=== PATIENT | female | born 2000 | race Two or more races ===

== ENCOUNTER 2024-10-21 04:32 | Emergency (ER) | payer MEDICAID, SELFPAY ==
[2024-10-21 04:45] VITALS: PULSE 112; RESP 18; O2SAT 98; BMI 1345.2
--- NOTE | 2024-10-21 04:46 | PD.EDSEIZ ---
ED Seizures RME/HPI General Chief Complaint: Seizure Stated Complaint: SEIZURE Time Seen by Provider: 10/21/24 04:37 Arrival date/time: 10/21/24 04:32 RME / HPI RME / HPI Narrative: This section includes all my notes and documentations, including HPI, PE, and ED course. Carter Rowe MD HPI: 24-year-old female here to be evaluated after a seizure at home. Has history of seizures for about a year. Has prescription for Keppra 500 mg BID. She admits to not being compliant. Normally, she takes Keppra every other day. In the past few days, she didn't take any Keppra. Just prior to arrival, her boyfriend witnessed her having a 30 second seizure in bed. With postictal state and urinary incontinence. ROS: Can't obtain from the patient due to postictal state. Physical Exam: General: In postictal state. Eyes: Conjunctivae and lids clear. EOMI. PERRL. ENT: No nasal congestion. Neck: Supple. Heart: RRR. Lungs: No respiratory distress. Good air movement. No rhonchi, wheezing, rales. Abdomen: Soft and nontender. Skin: Warm and dry. Neuro: Cranial Nerves II-XII grossly intact. No peripheral motor deficits. Musculoskeletal: All major joints and bones are not tender with no limited ROM. I reviewed EMS notes. I reviewed all diagnostic test results. My interpretation of the EKG is sinus rhythm with nonspecific ST-T changes. Blood tests unremarkable. At this point, diagnoses include seizure due to noncompliance. Treatment here included Keppra 1000 mg IV. Patient returned to normal mental status and remained stable. Recommended compliance with Keppra. Based on my best medical judgment, made decision no further evaluation or treatment indicated at this time. Patient understands and agrees to the discharge instructions customized and printed, see below. Discharge instructions from Dr. Rowe: 1. You definitely had a seizure today because of not taking Keppra as prescribed. 2. To prevent seizures (and potentially very severe injuries), please find a way to take Keppra as prescribed currently--500 mg pill 2X daily. 3. Call your neurologist office later today and let them know what happened and ask for further instructions. 4. Seek immediate medical care with another seizure or with any concerns. Related Data Allergies Allergy/AdvReac Type Severity Reaction Status Date / Time No Known Allergies Allergy Verified 05/17/20 12:03 Course Quality Measures none Orders Category Date Time Status EKG (ED ONLY) *Do not use* NOW Care 10/21/24 04:48 Completed Saline [Insert IV] NOW Care 10/21/24 04:47 Completed EKG (ED Only) Stat Exams 10/21/24 04:48 Ordered CBC Stat Lab 10/21/24 04:55 Completed CMP [Comprehensive Metabolic Panel] Stat Lab 10/21/24 04:55 Completed Magnesium Stat Lab 10/21/24 04:55 Completed Troponin I Stat Lab 10/21/24 04:55 Completed Acetaminophen Tab [Tylenol Tab] Med 10/21/24 05:09 Discontinued 650 mg PO X1 ONE Lacosamide Ivp [Vimpat IVP] 200 mg Med 10/21/24 04:37 Discontinued Sodium Chloride 0.9% [Ns] 100 ml IV X1 levETIRAcetam INJ [Keppra Inj] Med 10/21/24 04:47 Discontinued 1,000 mg IVP X1 ONE Vital Signs Vital signs: Vital Signs Temperature 98.4 F 10/21/24 05:17 Pulse Rate 73 10/21/24 05:17 Respiratory Rate 18 10/21/24 05:17 Blood Pressure 144/79 H 10/21/24 05:17 Pulse Oximetry (%) 95 10/21/24 05:17 Oxygen Delivery Method Room Air 10/21/24 05:17 Seizure Patient data External records reviewed:: [facility] previous records and EMS form Clinical information provided by:: patient, EMS and family Social determinants that could affect healthcare access:: none Patient has the following chronic illnesses:: Seizure disorder How is presenting disease/condition affected by chronic disease/condition?: exacerbated by Evaluation data The following diagnostics were reviewed and interpreted by me:: lab results and EKG tracing(s) (My interpretation of the EKG: NSR (84 bpm) with no ST-T changes. Carter Rowe MD) Lab and/or radiology exams considered but not ordered:: None Interpretation Summary: Seizure due to noncompliance Medications / Prescriptions Medications or Prescriptions considered but not ordered:: None Medication administrations:: Medication Administration History Discontinued Medications Acetaminophen (Acetaminophen 325 Mg Tablet) 650 mg PO X1 ONE Stop: 10/21/24 05:10 Last Admin: 10/21/24 05:16 Dose: 650 mg Documented By: KIMANI Lacosamide 200 mg/ Sodium (Chloride) 120 mls @ 240 mls/hr IV X1 ONE Stop: 10/21/24 04:38 Last Admin: 10/21/24 05:07 Dose: Not Given Documented By: KIMANI Non-Admin Reason: Discontinued Levetiracetam (Levetiracetam Inj 100 Mg/Ml Vial 5ml) 1,000 mg IVP X1 ONE Stop: 10/21/24 04:48 Last Admin: 10/21/24 04:58 Dose: 1,000 mg Documented By: KIMANI Keppra 1000 mg IV Consultations Consultation(s) initiated? (list below): No Diagnosis Seizure Differential Diagnosis: intractable seizure disorder, febrile convulsion, focal seizure, generalized seizure, epileptic seizure and status epilepticus Most likely diagnosis given after review of the tests above:: Seizure due to noncompliance Admission Indicated Admission indicated?: not indicated Admission Request Was there a request for admission?: No Disposition Plan Disposition Plan: Discharge Discharge Attestation Discharge Attestation: The patient and all family members were given an opportunity to ask questions and understood the discharge instructions. Discharge instructions specifically effects, indications for sooner follow up or return to the emergency department, and the expected course of current diagnosis. Patient condition: Stable Discharge Plan Plan Patient Disposition: HOME (Self Care) Problem List Clinical Impression: Seizure disorder Patient/Caregiver Discharge Instructions Discharge Activity: activity as tolerated Education Materials: ED Seizure, Recurrent (Adult) Additional Instructions: Discharge instructions from Dr. Rowe: 1. You definitely had a seizure today because of not taking Keppra as prescribed. 2. To prevent seizures (and potentially very severe injuries), please find a way to take Keppra as prescribed currently--500 mg pill 2X daily. 3. Call your neurologist office later today and let them know what happened and ask for further instructions. 4. Seek immediate medical care with another seizure or with any concerns. Print Language: [employer] Stand Alone Forms: Lori Award Info., Patient Portal Info Letter
[2024-10-21] MEDS: levETIRAcetam INJ 100 MG/ML VIAL 5ML 1000 MG IVP (04:58)
[2024-10-21] MEDS: ACETAMINOPHEN 325 MG TABLET 650 MG PO (05:16)
[2024-10-21 05:17] VITALS: BP 144/79; PULSE 73; RESP 18; TEMP 36.9; O2SAT 95
[2024-10-21 05:22] LABS: Basophils % (Auto) 1 % (0-2.5); Eosinophils # (Auto) 0.1 Thou/mm3 (0.0-0.5); Eosinophils % (Auto) 1 % (0-10); Hematocrit 38.7 % (36.0-46.0); Hemoglobin 13.4 g/dL (12.0-16.0); Immature Granulocytes % (Auto) 0 % (0-0); Immature Granulocytes Auto 0.02 Thou/mm3 (0.00-0.00); Lymphocytes # (Auto) 1.5 Thou/mm3 (1.0-4.8); Lymphocytes % (Auto) 25 % (10-50); Mean Corpuscular HGB Conc 34.6 g/dl (31.0-37.0); Mean Corpuscular Hemoglobin 29.8 pg (25.0-35.0); Mean Corpuscular Volume 86 fL (80-100); Monocytes # (Auto) 0.4 Thou/mm3 (0.0-0.8); Monocytes % (Auto) 7 % (0-12); Neutrophils # (Auto) 3.9 Thou/mm3 (1.8-7.7); Neutrophils % (Auto) 65 % (37-80); Nucleated Red Blood Cell % 0 /100 WBC (0); Platelet Count 180 Thou/mm3 (140-440); RDW Standard Deviation 38.5 fL (36.4-46.3)
[2024-10-21 06:10] LABS: Alanine Aminotransferase 14 U/L (10-49); Albumin, Serum 4.2 gm/dL (3.5-5.0); Anion Gap 8 (7-16); Aspartate Amino Transferase 17 U/L (0-34); BUN/Creatinine Ratio 13 Ratio (12-20); Bilirubin,Total 0.5 mg/dL (0.3-1.2); Blood Urea Nitrogen 12 mg/dL (9-23); Calcium 9.2 mg/dL (8.3-10.6); Calcium (Corrected) 9.2 mg/dL (8.5-10.1); Carbon Dioxide 20.8 mMol/L (20.0-31.0); Chloride 106 mMol/L (98-107); Creatinine (Component) 0.9 mg/dL (0.6-1.3); Estimated Creatinine Clearance 78.7 mL/min (>60); Globulin 3.4 gm/dL (2.3-3.5); Glucose 107 mg/dL (74-106); Magnesium 1.9 mg/dL (1.6-2.6); Osmolality,Calculated 269 (275-295); Potassium 4.1 mMol/L (3.4-5.1); Sodium 135 mMol/L (136-145); Total Protein 7.6 gm/dL (5.7-8.2); Troponin I < 0.002 ng/mL (0.0-0.045); eGFR > 60 See Note
[2024-10-21 06:11] LABS: Albumin/Globulin Ratio 1.2 (1.2-2.2); Alkaline Phosphatase 71 U/L (46-116)
--- NOTE | 2024-10-21 06:38 | PC.NURSE ---
No sz activity since arrival. Pt alert and oriented. GCS 15. Pts mother at bedside since shortly after pt arival.
== END 2024-10-21 06:44 | disposition home or self-care (01) ==
LOC: SERX 06:13
PROVIDERS: Emergency Provider Emergency Medicine
DX: R56.9 Unspecified convulsions (principal)
CPT/HCPCS: 36415; 80053; 83735; 84484; 85025; 93005; 96374; 99284; J1953; A9270